=== PATIENT | male | born 1990 | race American Indian/Alaskan Native ===

== ENCOUNTER 2022-01-20 14:05 | Emergency (ER) | payer SELFPAY ==
[2022-01-20 14:12] VITALS: BP 164/92
[2022-01-20 15:15] LABS: Basophils # (Auto) 0.1 K/mm3 (0.0-0.1); Basophils % (Auto) 0.8 % (0.0-1.8); Eosinophils # (Auto) 0.1 K/mm3 (0.0-0.4); Eosinophils % (Auto) 1.1 % (0.0-4.3); Hematocrit 41.5 % (35.5-45.6); Lymphocytes # (Auto) 1.3 K/mm3 (1.2-5.4); Lymphocytes % (Auto) 13.8 % (13.4-35.0); Mean Corpuscular HGB Conc 31 % (32-34); Mean Corpuscular Volume 76 fl (84-94); Monocytes # (Auto) 0.8 K/mm3 (0.0-0.8); Monocytes % (Auto) 8.2 % (0.0-7.3); Platelet Count 262 K/mm3 (140-440); Red Blood Count 5.46 M/mm3 (3.65-5.03); Red Cell Distribution Width 15.5 % (13.2-15.2)
[2022-01-20 15:31] LABS: BUN/Creatinine Ratio 8; Blood Urea Nitrogen 10 mg/dL (9-20); Calcium 9.6 mg/dL (8.4-10.2); Hemolysis Index 2
[2022-01-20] MEDS ORDERED: SODIUM CHLORIDE 0.9% 1000 ML 1,000 ML IV ONE (15:34)
--- NOTE | 2022-01-20 15:38 | Emergency Department Report ---
ED General Adult HPI - General Chief complaint: Altered Mental Status Stated complaint: HEAT EXHAUSTON Time Seen by Provider: 01/20/22 15:18 Source: patient, EMS Mode of arrival: Stretcher Limitations: No Limitations - History of Present Illness Initial comments: Patient presents with complaints of dizziness perceived as lightheadedness, as though he was about to pass out, irrespective of body or head positioning. Denies any numbness, weakness, headache, chest pain, shortness of breath, palpitations, vomiting, diarrhea, hematochezia, bloody or black tarry stools. States he had been outside in the heat working and sweating profusely. States the dizziness was associated with an episode of whole body cramps that his extremities felt locked up. - Related Data Allergies Allergy/AdvReac Type Severity Reaction Status Date / Time No Known Allergies Allergy Verified 01/20/22 14:11 ED Review of Systems ROS: Stated complaint: HEAT EXHAUSTON Other details as noted in HPI Comment: All other systems reviewed and negative Constitutional: denies: chills, fever ED Past Medical Hx - Past Medical History Previous Medical History?: No ED Physical Exam - General Limitations: No Limitations General appearance: alert, in no apparent distress - Head Head exam: Present: atraumatic, normocephalic - Eye Eye exam: Present: PERRL, EOMI - ENT ENT exam: Present: mucous membranes moist, other (airway patent) - Neck Neck exam: Present: other (supple; no JVD) - Respiratory Respiratory exam: Present: other (good air entry, nml I:E, CTAB, no use of AINSLEY) - Cardiovascular Cardiovascular Exam: Present: regular rate, normal rhythm. Absent: rubs, gallop - GI/Abdominal GI/Abdominal exam: Present: soft, normal bowel sounds. Absent: distended, tenderness, guarding, rebound - Extremities Exam Extremities exam: Present: full ROM. Absent: tenderness - Back Exam Back exam: Present: full ROM. Absent: tenderness - Neurological Exam Neurological exam: Present: alert, altered, oriented X3, CN II-XII intact. Absent: motor sensory deficit ED Course Vital Signs 01/20/22 14:09 Temperature 98.9 F Pulse Rate 90 Respiratory 18 Rate Blood Pressure 164/92 [Left] O2 Sat by Pulse 100 Oximetry ED Medical Decision Making - Lab Data Result diagrams: 01/20/22 14:44 01/20/22 16:11 Laboratory Tests 01/20/22 01/20/22 01/20/22 14:44 14:44 16:11 WBC 9.3 RBC 5.46 H Hgb 13.0 Hct 41.5 MCV 76 L MCH 24 L MCHC 31 L RDW 15.5 H Plt Count 262 Lymph % (Auto) 13.8 Dolores % (Auto) 8.2 H Eos % (Auto) 1.1 Baso % (Auto) 0.8 Lymph # (Auto) 1.3 Dolores # (Auto) 0.8 Eos # (Auto) 0.1 Baso # (Auto) 0.1 Seg Neutrophils % 76.1 H Seg Neutrophils # 7.1 Sodium 139 138 Potassium 3.3 L 4.1 D Chloride 98.7 99.7 Carbon Dioxide 23 26 Anion Gap 21 16 BUN 10 10 Creatinine 1.2 1.1 Estimated GFR > 60 > 60 BUN/Creatinine Ratio 8 9 Glucose 94 133 H Calcium 9.6 9.5 Total Bilirubin 0.50 AST 18 ALT 9 Alkaline Phosphatase 76 Total Creatine Kinase 143 Troponin T < 0.010 Total Protein 7.6 Albumin 4.3 Albumin/Globulin Ratio 1.3 - Radiology Data CXR: no acute cardiopulmonary process CT head: no acute intracranial process EKG: HR 78, sinus rhythm with PACs, isolated ST elevation in V2 (likely SUNG) - Medical Decision Making Diff dz: - likely 2/2 heat exhaustion. Pneumonia, intracrnial process ruled out. ACS unlikely. [id number] NS 1L bolus x 1, Kcl 40 Meq PO x 1 Critical care attestation.: If time is entered above; I have spent that time in minutes in the direct care of this critically ill patient, excluding procedure time. ED Disposition Clinical Impression: Heat exhaustion Disposition: HOME / SELF CARE / HOMELESS Is pt being admited?: No Does the pt Need Aspirin: No Condition: Stable Instructions: Heat Exhaustion Additional Instructions: Return to the ER if your symptoms worsen or do not improve. Referrals: PRIMARY CARE, [Primary Care Provider] - 3-5 Days Time of Disposition: 17:00
--- NOTE | 2022-01-20 16:03 | XRay Report ---
CHEST 1 VIEW 01/20/2022 3:49 PM INDICATION / CLINICAL INFORMATION: dizziness. COMPARISON: None available. FINDINGS: SUPPORT DEVICES: None. HEART / MEDIASTINUM: No significant abnormality. LUNGS / PLEURA: No significant pulmonary abnormality. No significant pleural effusion. No pneumothora x. ADDITIONAL FINDINGS: No significant additional findings. IMPRESSION: 1. No acute abnormality of the chest. Signer Name: Frankie Menchaca MD Signed: 01/20/2022 3:59 PM Workstation Name: [email or web address]
--- NOTE | 2022-01-20 16:23 | Cat Scan Report ---
CT head/brain wo con INDICATION: dizziness. TECHNIQUE: Routine CT head. All CT scans at this location are performed using CT dose reduction for A MAT by means of automated exposure control. COMPARISON: None. FINDINGS: Intracranial: Leroy-white matter differentiation is maintained. No intracranial hemorrhage. No extra a xial collection. No hydrocephalus. No herniation. Sinuses: Small mucous retention cyst left maxillary sinus. There is opacification of the visualized l eft nasal passage. Mastoid air cells are essentially clear. Orbits: Globes are intact. Calvarium: No acute fracture. IMPRESSION: 1. No acute intracranial abnormality. Signer Name: Pietro Ochoa MD Signed: 01/20/2022 4:19 PM Workstation Name: [email or web address]
[2022-01-20 16:51] LABS: Alanine Aminotransferase 9 units/L (7-56); Albumin 4.3 g/dL (3.9-5); BUN/Creatinine Ratio 9; Blood Urea Nitrogen 10 mg/dL (9-20); Calcium 9.5 mg/dL (8.4-10.2); Hemolysis Index 4
[2022-01-20] MEDS ORDERED: POTASSIUM CHLORIDE ER 20 MEQ TAB PO ONE (17:13)
--- NOTE | 2022-01-21 10:33 | Electrocardiograph Report ---
[facility] Test Date: 2022-01-20 Test Time: 15:57:38 Pat Name: SARAH SIDDIQUI Department: Room: Gender: M Inspector Aide: [birth year] : 1990 Requested By: ANDREW CLINTON Order Number: [id number] Reading MD: Dominic Blount Measurements Intervals [place] Rate: 78 P: 59 SD: 129 QRS: 37 QRSD: 94 T: 42 QT: 461 QTc: 497 Interpretive Statements Sinus rhythm Atrial premature complexes Abnormal T, consider ischemia, anterior leads Prolonged QT interval No previous ECG available for comparison Electronically Signed On 01-21-2022 10:33:41 EDT by Dominic Blount
== END 2022-01-20 18:05 | disposition home or self-care (01) ==
LOC: ED 14:05
DX: T67.5XXA Heat exhaustion, unspecified, initial encounter (principal); X58.XXXA Exposure to other specified factors, initial encounter; Y93.89 Activity, other specified; Y92.89 Other specified places as the place of occurrence of the external cause; Y99.8 Other external cause status
CPT/HCPCS: 36415; 70450; 71045; 80048; 80053; 82550; 84484; 85025; 93005; 96360; 99285; J7030